=== PATIENT | male | born 1960 | race Caucasian/White ===

== ENCOUNTER → 2017-04-09 | Outpatient (CLI) | payer BC ==
--- NOTE | 2017-04-09 16:04 | DIAGNOSTIC IMAGING REPORT ---
CHEST 2 VIEWS ROUTINE HISTORY:56 yearsMaleFEVER,COUGH,SOB,WHEEZING COMPARISON: None available TECHNIQUE: Frontal and lateral views of the chest FINDINGS: Cardiomediastinal and hilar silhouettes are within normal limits. There is no pneumothorax, pleural effusion, focal airspace consolidation or overt pulmonary edema. The bones appear to be grossly intact. IMPRESSION: No acute cardiopulmonary process. The above report was generated using voice recognition software. It may contain grammatical, syntax or spelling errors. Electronically signed by: Master Estrada M.D. 04/09/2017 4:03 PM Dictated Date/Time: 04/09/2017 4:02 PM
== END | disposition home or self-care (01) ==
LOC: C.RAD1850 15:27
PROVIDERS: ATTEND Nurse Practitioner Family
DX: R50.9 Fever, unspecified (principal); M54.9 Dorsalgia, unspecified; R05 Cough; R06.02 Shortness of breath; R06.2 Wheezing